=== PATIENT | female | born 1995 | race Two or more races ===

== ENCOUNTER 2016-03-21 04:04 | Emergency (ER) | payer OTHER ==
[2016-03-21 04:11] VITALS: TEMP 98.6
[2016-03-21] MEDS ORDERED: PENICILLIN VK 250MG PREPACK#6 BTL TAKEHOME ONE (04:38)
--- NOTE | 2016-03-21 04:39 | EDPHY ---
[id number] [id number] 03/21/16 04:26 HPI/ROS: HPI The patient presents with tooth pain of a left upper molar after a crown was placed 3 days ago at [facility]. The pain is achy, constant, not improved with ibuprofen and is moderate in severity. She does not have any swelling or fever. She does not have any difficulty swallowing. She did not trying call the dentist's office. REVIEW OF SYSTEMS Constitutional: No fever, no chills. Eyes: No discharge. ENT: No sore throat. Skin: No rashes. Neurological: No headache. PMHx: Healthy PHYSICAL General Appearance: Alert, no distress Eyes: Pupils equal and round no pallor or injection ENT, Mouth: tooth [address], tender to palpation with minimal surrounding erythema along the gum line, no areas of fluctuation, posterior pharynx is clear Mucous membranes moist Respiratory: There are no retractions, breathing comfortably Psychiatric: Patient is oriented X 3, there is no agitation Source: Patient Exam Limitations: No limitations - Personal History LMP (Females 10-55): 1-7 Days Ago Current Tetanus/Diphtheria Vaccine: Unsure - Medical/Surgical History Hx Asthma: No Hx Chronic Respiratory Disease: No Hx Diabetes: No Hx Cardiac Disease: No Hx Renal Disease: No Hx Cirrhosis: No Hx Alcoholism: No Hx HIV/AIDS: No Hx Splenectomy or Spleen Trauma: No Other PMH: denies - Social History Smoking Status: Never smoked Constitutional: Initial Vital Signs Temperature (C) 37.0 C 03/21/16 04:08 Heart Rate 110 H 03/21/16 04:08 Respiratory Rate 18 03/21/16 04:08 Blood Pressure 131/89 H 03/21/16 04:08 O2 Sat (%) 96 03/21/16 04:08 O2 Delivery Mode Room Air Allergies/Adverse Reactions: No Known Allergies Allergy (Verified 03/21/16 04:07) Home Medications: Medication Instructions Recorded NO HOME MEDICATIONS 02/16/11 Penicillin V Potassium [Penicillin 500 mg PO BID #14 tab 03/21/16 VK] Medical Decision Making Procedures: Dental block- Using 2 mL of 0.5% bupivacaine with epinephrine, a 27 gauge needle was introduced in the periapical region surrounding tooth number 15, anesthesia was injected with good result. Differential Diagnosis: This is a healthy 20-year-old female who had a crown placed about 3 days ago to tooth 15., she is now complaining of tooth pain. She does have tenderness to palpation of the tooth, however the surrounding mucosa is all normal appearing. She may have a dental infection which is mild. I will prescribe her a course of penicillin for this. I will perform a dental block for pain. She is to follow up with her dentist in the next 1-2 days. Differential diagnosis includes dental infection, dental abscess, less likely pharyngitis. - Data Points Medications Given: Discontinued Medications Penicillin V Potassium (Pen Vk 250 Mg Prepack#6) 1 btl TAKEHOME EDNOW ONE PRN Reason: Protocol Stop: 03/21/16 04:39 Last Admin: 03/21/16 04:59 Dose: 1 btl Departure - Departure Disposition: Home, Routine, Self-Care Clinical Impression: Pain, dental Condition: Good Instructions: Penicillin V (By mouth), Toothache (ED) Additional Instructions: Please call your dentist in the next 1 day to arrange for follow-up. Referrals: NONE *PRIMARY CARE P,. [Primary Care Provider] - As per Instructions Prescriptions: Penicillin V Potassium [Penicillin VK] 500 mg PO BID #14 tab
[2016-03-21 05:15] VITALS: BP 141/101; PULSE 108; RESP 16; O2SAT 98
== END 2016-03-21 05:05 | disposition home or self-care (01) ==
DX: K08.89 Other specified disorders of teeth and supporting structures (principal)

== ENCOUNTER 2016-03-21 22:47 | Emergency (ER) | payer OTHER ==
[2016-03-21 22:55] VITALS: BP 115/78; PULSE 109; RESP 16; TEMP 98.6; O2SAT 92
--- NOTE | 2016-03-21 23:28 | EDPHY ---
H & P Time Seen by Provider: 03/21/16 23:15 HPI/ROS: CHIEF COMPLAINT: Odontalgia HISTORY OF PRESENT ILLNESS: 20-year-old immunocompetent female in the ER via private vehicle complaining of left upper molar pain after cry was placed 3 days ago at dentist. She was seen in the ER earlier today for same complaints receive dental nerve block which allowed her to sleep however the nerve block wore off she returns to the ER. Today is Tuesday. She is planning on seeing her dentist tomorrow Tuesday and requests dental nerve block to help her through the night. Denies acute symptoms. Denies: Trismus, drooling, fever, chills, nuchal rigidity. PHYSICAL EXAM (Prior to examination, patient consented to physical exam, hands were washed and my usual and customary physical exam procedures followed) 1) GENERAL: Well-developed, well-nourished, alert and oriented. Appears nontoxic. 2) HEAD: Normocephalic 3) HEENT: sclera anicteric. Floor of mouth soft. No trismus no drooling. Tooth 15 Tender to percussion with no areas of fluctuance. 4) LUNGS: Breathing comfortably. Smoking Status: Never smoked Constitutional: Initial Vital Signs Temperature (C) 37 C 03/21/16 22:49 Heart Rate 109 H 03/21/16 22:49 Respiratory Rate 16 03/21/16 22:49 Blood Pressure 115/78 03/21/16 22:49 O2 Sat (%) 92 03/21/16 22:49 O2 Delivery Mode Room Air Allergies/Adverse Reactions: No Known Allergies Allergy (Verified 03/21/16 04:07) Home Medications: Medication Instructions Recorded NK [No Known Home Meds] 03/21/16 MDM/Departure - MDM Procedures: Dental nerve block of 0.5% bupivacaine achieving anesthesia. ED Course/Re-evaluation: Patient has a dental appointment tomorrow (Tuesday). This time she has no evidence of deep space infection, Ludwigs Angina. I do not think that imaging indicated. She is already on antibiotics and I recommend she continue and keep her dental appointment. Strict return precautions provided. - Depart Disposition: Home, Routine, Self-Care Clinical Impression: Pain, dental Condition: Good Instructions: Toothache (ED) Additional Instructions: See your dentist tomorrow Referrals: Follow-up, with your dentist tomorrow [Other] - As per Instructions
== END 2016-03-21 23:49 | disposition home or self-care (01) ==
PROC: 3E0X3BZ Introduction of Anesthetic Agent into Cranial Nerves, Percutaneous Approach (ICD-10-PCS; principal; 2016-03-21)
DX: K08.89 Other specified disorders of teeth and supporting structures (principal)